=== PATIENT | female | born 1970 | race Caucasian/White ===

== ENCOUNTER 2017-07-24 13:22 | Emergency (ER) | END 2017-07-24 16:21 | disposition home or self-care (01) ==

== ENCOUNTER 2019-02-26 14:52 | Emergency (ER) | payer OTHER ==
[~2019-02-26] VITALS: Ht 154.9 cm; Wt 71.1 kg
[~2019-02-26 14:52] MED LIST: ALBU8.5H8 INH; AZIT250T PO; D-ME473S2 PO; IBUP-1542 PO; IBUP800T48 PO; PRED50TA PO
[2019-02-26 15:06] VITALS: BP 139/72; PULSE 83; RESP 16; Ht 154.9 cm; Wt 71.1 kg
[2019-02-26] MEDS ORDERED: DIPHTH/TET/ACEL PERTUSS (ADULT) 0.5 ML VIAL IM* ONE (16:00)
== END 2019-02-26 17:19 | disposition home or self-care (01) ==
LOC: FTE 14:52
DX: S61.211A Laceration without foreign body of left index finger without damage to nail, initial encounter (principal); W26.0XXA Contact with knife, initial encounter; Y92.9 Unspecified place or not applicable; Z23 Encounter for immunization
CPT/HCPCS: 12001; 90471; 90715; Z7502; Z7610